=== PATIENT | female | born 1955 | race Caucasian/White ===

== ENCOUNTER → 2017-03-17 | Outpatient (CLI) | payer OTHER ==
[~2017-03-17] MED LIST: AMOX1TAB15 PO; ASPI325T PO; LEVO80CA; MULT-543 PO; MV C PO; NIAC500T22; P-EP-93 PO; POTA99TA24 PO; PRED20TA PO; QUET150T3 PO; VIBRYD PO; ZOLP-107 PO; [UNRECOGNIZED DRUG - OTHER] PO
[2017-03-17 17:35] LABS: HCT - HEMATOCRIT 43.2 % (36-46); HGB - HEMOGLOBIN 14.4 GM/DL (12-16); MEAN CORPUSCULAR HGB 29.4 UUG (26-34); MEAN CORPUSCULAR HGB CONC(MCHC 33.3 GM/DL (31-37); MEAN CORPUSCULAR VOLUME 88.3 UM3 (80-100); MEAN PLATELET VOLUME 10.3 UM3 (9.4-12.4); RED BLOOD COUNT 4.89 M/MM3 (4.00-5.20); WBC - WHITE BLOOD COUNT 11.7 T/MM3 (4.5-11.0)
[2017-03-17 17:44] LABS: ALBUMIN 4.8 G/DL (3.5-5.0); ALBUMIN/GLOBULIN RATIO 1.6 RATIO (1.1-2.2); ALKALINE PHOSPHATASE 96 U/L (38-126); ALT (SGPT) 54 U/L (9-52); ANION GAP 15 MEQ/L (5-15); AST (SGOT) 44 U/L (14-36); BUN/CREATININE RATIO 20 RATIO (6-26); CALCIUM 9.5 MG/DL (8.4-10.2); CHLORIDE 102 MEQ/L (98-107); CO2 - CARBON DIOXIDE 26 MEQ/L (22-30); CREATININE 0.6 MG/DL (0.7-1.2); GLOMERULAR FILTRATION RATE 102; GLUCOSE 126 MG/DL (65-110); SODIUM 143 MEQ/L (134-144); TOTAL PROTEIN 7.8 G/DL (6.3-8.2)
[2017-03-17 17:55] LABS: BAND NEUTROPHILS # 1.1 T/MM3; LYMPHOCYTES # (MANUAL) 0.5 T/MM3 (1-4.8); MONOCYTES # (MANUAL) 0.9 T/MM3 (0-0.8); MYELOCYTES # 0.1 T/MM3; NEUTROPHILS #(MANUAL)-ABSOLUTE 9.1 T/MM3 (1.8-7.7); TOTAL CELLS COUNTED 100 %
== END ==
LOC: LAB 17:17
PROVIDERS: ATTEND Family Medicine
DX: R11.2 Nausea with vomiting, unspecified (principal)
CPT/HCPCS: 36415; 80053; 85025; 87507

== ENCOUNTER 2018-06-16 17:42 | Inpatient (IN) ==
--- NOTE | 2018-06-16 18:00 | Emergency Department Report ---
Syncope HPI - General Chief Complaint: Dizziness Stated Complaint: low blood bp, feels like passing out Time Seen by Provider: 06/16/18 17:58 Source: patient - History of Present Illness HPI narrative: 63 YO F presents to ED with compliant of feeling like she might pass out intermittently. Says she has noticed this when she changes position and with exertion. States she started a high protein diet approx. 6 weeks ago and has lost approx. 15lbs. Had similar symptoms when she was on this diet before. Denies fever, chills, CP, SOA, nausea, vomiting, abdominal pain, dizziness, ataxia. Patient says she thought feeling like she might pass out was because her blood pressure was too low. Patient cut her prescribed metoprolol 25mg in half for 4 days and then went off of it after that. Says she took metoprolol for a "racing heart". complaint: almost passed out - Related Data Home Medications Medication Instructions Recorded Confirmed BuPROPion XL [Wellbutrin Xl] 150 mg PO DAILY 06/16/18 06/16/18 Calcium Carbonate 500 mg PO DAILY 06/16/18 06/16/18 Glucos/MSM/Colgii/C/Man/Herb21 1 cap PO BID 06/16/18 06/16/18 [Glucosamine-MSM Complex Cap] Lactobacillus Acidophilus 1 each PO DAILY 06/16/18 06/16/18 [Probiotic] Levomefolate Calcium 15 mg PO DAILY 06/16/18 06/16/18 [l-Methylfolate] Levomilnacipran HCl [Fetzima] 80 mg PO DAILY 06/16/18 06/16/18 Loratadine [Claritin] 10 mg PO DAILY 06/16/18 06/16/18 Multivit,Min/Folic Acid/Sph937 400 mcg PO DAILY 06/16/18 06/16/18 [Estroven Max Strength Caplet] Multivitamin [One Daily 1 each PO DAILY 06/16/18 06/16/18 Multivitamin] Niacin [Niacin ER] 500 mg PO BID 06/16/18 06/16/18 Potassium 99 mg PO DAILY 06/16/18 06/16/18 Quetiapine Fumarate [Quetiapine 300 mg PO HS 06/16/18 06/16/18 Fumarate ER] Previous Rx's Medication Instructions Recorded Ferrous Gluconate [Fergon] 324 mg PO WB #100 tab 06/20/18 Allergies Allergy/AdvReac Type Severity Reaction Status Date / Time Sulfa (Sulfonamide Allergy Unknown Verified 06/16/18 18:19 Antibiotics) Review of Systems All systems: reviewed and negative except as stated (Is) Constitutional: Denies: fever, chills, weight change, night sweats Cardiovascular: Denies: chest pain, palpitations, dyspnea on exertion Gastrointestinal: Denies: abdominal pain, nausea, vomiting, diarrhea PFSH Patient Stated Medical History Hearing Loss Yes Hypertension Yes Clinic Medical History (Last Updated 06/17/18 @ 14:45 by Ray Calvillo MD) Tachycardia (Chronic Medical) Crisis Manager: Dr. Reinier Anderson. Has had cardiac workup including echocardiogram and stress test. No history of atrial fibrillation. Mitral valve prolapse (Chronic Medical) Anxiety (Chronic Medical) Depression (Chronic Medical) Hyperlipidemia (Chronic Medical) Surgical History: Cholecystectomy. Tubal ligation. Hysterectomy Family History: Family History (Last Updated 06/17/18 @ 14:36 by Ray Calvillo MD) Father , at age 72 Diabetes Alcohol abuse Congestive heart failure (CHF) Heart disease Emphysema/COPD Mother , at age 62 Diabetes Heart disease Hypercholesteremia Heart attack Emphysema/COPD Brother Diabetes Hypercholesteremia Emphysema/COPD Brother Diabetes Hypercholesteremia Brother Cancer of colon Diabetes Hypercholesteremia Sister Morbid obesity Maternal Grandmother Cancer of breast Paternal Aunt Cancer of breast Paternal Aunt Ovarian cancer Noncontributory - Social History Household members: spouse Physical Exam - Limitations Limitations: no limitations - General General appearance: alert, in no apparent distress - Normal Exams: Head:: Normocephalic without trauma Eyes:: Pupils are PERRLA w/ EOMI, No scleral icterus ENMT:: No facial trauma, nasal exudates, pharyngeal erythema Neck:: Full range of motion Chest/Respirations:: Clear all strong, with good airflow, and symmetry bilaterally Abdomen:: Bowel sounds positive, soft, non-tender, non-distended Musculoskeletal:: good range of motion, all extremities Neurological:: Patient is alert, and oriented, motor/sensory/cerebellar, exams w /o gross deficits, to observation Psychiatric:: Patient exhibits, appropriate attention - ENT ENT exam: Present: TM's normal bilaterally (hemoglobin is is 0.5 softener heart refill) - Rectal Exam Rectal exam: Present: normal rectal tone, heme (+) stool, hemorrhoids - Skin Skin exam: Present: warm, dry Course - Consultations Consultation #1: I discussed patient HPI, past medical history, labs, EKG, vital signs exam findings with Dr. Torres. Dr. Torres will admit inpatient. I did discussed with Dr. Torres that I would consult Dr. Kendrick for possible colonoscopy related to GI bleed. Consultation #2: I discussed patient's HPI, past medical history, labs, vital signs, exam findings and conversation I had with Dr. Torres with Dr. Kendrick. He said he would be glad to consult on this patient. Vital Signs Temperature 98.7 F 06/16/18 17:45 Pulse Rate 108 H 06/16/18 17:45 Respiratory Rate 20 06/16/18 17:45 Blood Pressure 149/73 H 06/16/18 17:45 Pulse Oximetry 100 06/16/18 17:45 Temperature 96.8 F 06/20/18 11:59 Pulse Rate 116 H 06/20/18 11:59 Respiratory Rate 16 06/20/18 11:59 Blood Pressure 131/68 06/20/18 11:59 Pulse Oximetry 96 06/20/18 11:59 Syncope - MDM Narrative Medical decision making narrative: RBC 2.30 Hgb 6.5 ( I asked patient if she has had any blood or black tarry stools which she said she has some dark stool this week) Patient has heme positive stool. Chloride 112 TP 6.1 Globulin 2.3 Heme + stool Other labs unremarkable EKG shows SR Vital signs improving. Concern for GI bleed due to low Hgb and Heme+ stool. However also some concern Hgb low due dietary deficiencies. I discussed labs and exam findings with patient and need for admission to the hospital which she agreed with. Patient is admitted to the hospital service with consult to Dr. Kendrick. - Differential Diagnosis Likely: syncope due to orthostatic hypotension, vasovagal syncope, complete atrioventricular block, dehydration - Medical Records Attestation: I reviewed the patient's medical records. - Lab Data Attestation: I reviewed the patient's lab results. Result diagrams: 06/20/18 04:42 06/20/18 04:42 Lab Results 06/16/18 06/16/1806/16/18 Range/Units 18:27 18:27 18:36 WBC 4.6 (4.5-11.0) T/MM3 RBC 2.30 L (4.00-5.20) M/MM3 Hgb 6.5 L (12-16) GM/DL Hct 20.4 L (36-46) % MCV 88.7 (80-100) UM3 MCH 28.3 (26-34) UUG MCHC 31.9 (31-37) GM/DL RDW Std Deviation 43.7 (36.9-50.2) FL Plt Count 246 (130-400) T/MM3 MPV 10.8 (9.4-12.4) UM3 Neutrophils % (Manual) 65.0 (33-66) % Lymphocytes % (Manual) 28.0 (23-45) % Monocytes % (Manual) 5.0 (0-9.0) % Eosinophils % (Manual) 2.0 (0-4) % Neutrophils # (Manual) 3.0 (1.8-7.7) T/MM3 Lymphocytes # (Manual) 1.3 (1-4.8) T/MM3 Monocytes # (Manual) 0.2 (0-0.8) T/MM3 Eosinophils # (Manual) 0.1 (0-0.5) T/MM3 Hypochromasia 1+ Anisocytosis 1+ RBC Morph Comment Abnormal Turbidity < 20 (0-20) Sodium 145 (136-146) MEQ/L Potassium 3.7 (3.6-5) MEQ/L Chloride 112 H (98-107) MEQ/L Carbon Dioxide 23 (22-30) MEQ/L Anion Gap 10 (5-15) meq/L BUN 16.0 (7-17) MG/DL Creatinine 0.5 L (0.7-1.2) mg/dL Estimated Creat Clear 63 (>50) mL/min GFR Calculation 125 (>60) mL/min BUN/Creatinine Ratio 32 H (6-26) RATIO Glucose 90 (65-110) MG/DL Calculated Osmolality 280 (261-280) MOSM/KG Calcium 8.5 (8.4-10.2) MG/DL Total Bilirubin < 0.10 L (0.20-1.30) MG/DL Icterus Index < 2 (0-7) AST 21 (14-36) U/L ALT 17 (1-35) U/L Alkaline Phosphatase 55 (38-126) U/L Troponin I < 0.012 (0-0.12) ng/ml NT-Pro-B Natriuret Pep 116 (0-175) pg/mL Total Protein 6.1 L (6.3-8.2) g/dL Albumin 3.8 (3.5-5.0) g/dL Globulin 2.3 L (2.4-3.6) G/DL Albumin/Globulin Ratio 1.7 (1.1-2.2) RATIO Specimen Hemolysis < 15 (0-25) Ur Collection Type Urine, void-cc/notcc Urine Color Yellow (YELLOW) Urine Clarity Clear Urine pH 6.0 (5.0-8.0) Ur Specific [place] <=1.005 L (1.015-1.025) Urine Protein Negative (NEGATIVE) Urine Glucose (UA) Negative (NEGATIVE) Urine Ketones 1+ A (NEGATIVE) Urine Occult Blood Negative (NEGATIVE) Urine Nitrate Negative (NEGATIVE) Urine Bilirubin Negative (NEGATIVE) Urine Urobilinogen 0.2 (NORMAL) EU/DL Ur Leukocyte Esterase Negative (NEGATIVE) Urinalysis Comment Microscopic not ind. Disposition Clinical Impression: GI bleed Qualifiers: GI bleed type/associated pathology: unspecified gastrointestinal hemorrhage type Qualified Code(s): K92.2 - Gastrointestinal hemorrhage, unspecified [place]: [place] [facility] [place] Condition: Stable - Seen By: midlevel
[2018-06-16] MEDS: SALINE FLUSH 10ml SYRINGE IVF PRN (18:30)
[2018-06-16] MEDS ORDERED: NS 1,000 ML IV SCH (20:00)
--- NOTE | 2018-06-16 20:30 | History & Physical Report ---
History of Present Illness Date: 06/16/18 Chief complaint: lightheaded, concerned about bp HPI: Patient is a 63 y/o with h/o HTN, tachycardia, MDD/Anxiety who presents to ER w / concerns re: being intermittently lightheaded and feeling as if she may pass out going for about a week. Patient initially felt it was her BP being low, so she cut her metoprolol dose in half and then stopped completely this week. She states the lightheadedness and fatigue is more pronounced w/ exertion. She states she has been on a high protein diet for about 6 weeks and did lose approx. 15 lbs, and states she was on it in the past and had similar type symptoms at that time. Patient denies SOA, dyspnea, CP, dysphagia, BRBPR, n/v/d and f/c/s. She has fatigue and generalized weakness and does report some loose dark stools recently In ER patient noted to have Hgb of 6.5, and hemoccult + stool that was described by ED provider as "melanotic". No known h/o GI Bleed but does have h /o colonic polyps, last colonoscopy about 5 years ago. ER provider spoke w/ Dr. Calvillo and he will see her tomorrow. Patient admitted to the Hospitalist service for further evaluation and management. Review of Systems All systems PM: 10-point ROS was reviewed, no additional remarkable complaints except Past Medical History Medical History Updates: H/o depression, anxiety, unknown tachycardia and has had cardiology w/u in past w/ no definitive dx, thought to be sinus tach - no h/ o Afib; Has h/o MVP; Has h/o HTN Surgical History: Cholecystectomy. Tubal ligation. Hysterectomy Family History: Father and brother w/ colon "issues" Family History: As Above - Social History Smoking status: Never smoker Medications Home Medications Medication Instructions Recorded Confirmed Type BuPROPion XL [Wellbutrin Xl] 150 mg PO DAILY 06/16/18 06/16/18 History Calcium Carbonate [Calcium] 500 mg PO DAILY 06/16/18 06/16/18 History Glucos/MSM/Colgii/C/Man/Herb21 1 cap PO BID 06/16/18 06/16/18 History [Glucosamine-MSM Complex Cap] Lactobacillus Acidophilus 1 each PO DAILY 06/16/18 06/16/18 History [Probiotic] Levomefolate Calcium 15 mg PO DAILY 06/16/18 06/16/18 History [l-Methylfolate] Levomilnacipran HCl [Fetzima] 80 mg PO DAILY 06/16/18 06/16/18 History Loratadine [Claritin] 10 mg PO DAILY 06/16/18 06/16/18 History Multivit,Min/Folic Acid/Xjl512 400 mcg PO DAILY 06/16/18 06/16/18 History [Estroven Max Strength Caplet] Multivitamin [One Daily 1 each PO DAILY 06/16/18 06/16/18 History Multivitamin] Niacin [Niacin ER] 500 mg PO BID 06/16/18 06/16/18 History Potassium 99 mg PO DAILY 06/16/18 06/16/18 History Quetiapine Fumarate [Quetiapine 300 mg PO HS 06/16/18 06/16/18 History Fumarate ER] Allergies Allergy/AdvReac Type Severity Reaction Status Date / Time Sulfa (Sulfonamide Allergy Unknown Verified 06/16/18 18:19 Antibiotics) Exam Vital Signs: Temperature 98.7 F 06/16/18 17:45 Pulse Rate 99 06/16/18 20:21 Respiratory Rate 18 06/16/18 20:21 Blood Pressure 121/73 06/16/18 20:21 Pulse Oximetry 97 06/16/18 20:21 Telemetry Rhythm: Sinus Rhythm Height/Weight/BMI: Height 1.65 m Weight 82.9 kg - Constitutional Present: no acute distress, well nourished - Routine HEENT Exam Head: Present: normocephalic, atraumatic Eye: Present: EOMI, PERRL. Absent: conjunctival icterus, scleral injection ENT: Present: mucous membranes moist, nares patent - Routine Neck Exam Present: supple, full ROM. Absent: JVD, lymphadenopathy - Routine Respiratory Exam Present: CTA bilaterally. Absent: accessory muscle use, dyspnea, respiratory distress - Routine Cardiovascular Exam Present: RRR, S1, S2. Absent: murmur - Routine Abdominal Exam Present: soft, normoactive bowel sounds, non distended, non tender - Routine Extremities Exam Absent: cyanosis, clubbing, edema - Routine Skin Exam Present: intact, dry - Routine Neurological Exam Present: alert, oriented X3, CN II-XII intact. Absent: sensory deficit, motor deficit - Routine Psychiatric Exam Present: normal affect, normal thought process, cooperative, good insight, good judgment Results - Labs CBC & Chem 7: 06/16/18 18:27 06/16/18 18:27 Assessment and Plan Assessment and Plan: Assessment: 1) Acute Anemia - likely blood loss however possible dietary component as well 2) Acute GI bleed likely - hemoccult positive stool in ED tonight 3) Acute Near-syncopal episodes r/t #s 1 & 2 4) HTN 5) Mild tachycardia - sinus tachycardia - patient refers to h/o "accelearated heart rate in past" 6) Anxiety/Depression Plan: Admit to Hospitalist 1 unit pRBCs Clear liquid diet Dr. Calvillo consult IVFs Protonix Home meds as indicated Orthostatic BPs BP monitoring Telemetry Labs in AM including CBC, Renal Panel and mg level SCDs Fall precautions If elevated HR and Bp , may need to restart low-dose metoprolol which patient states she would be in agreement with however will hold off for now and monitor H/H I discussed the plan of care with the patient and the patient's and they verbalized understanding and agreement. DVT Prophylaxis: SCD's GI Prophylaxis: Protonix Resuscitation Status: Full Code - Physician Narrative Narrative: Date: 06/16/18 Time: 2022 Hospital Course Summary Disclaimer: The visit summary below is not to be considered part of the above Progress Note.
[2018-06-16] MEDS ORDERED: NS FLUSH BAG 500ml IV PRN (20:43)
[2018-06-16 20:52] VITALS: BMI 30.6
[2018-06-16] MEDS: NS 1,000 ML IV SCH (21:18)
[2018-06-16] MEDS ORDERED: PANTOPRAZOLE 40 MG INJECTION IVP ONE (21:54)
[2018-06-17] MEDS: NS 1,000 ML IV SCH ×3 (04:22→16:19)
[2018-06-17] MEDS: ACETAMINOPHEN 325 MG TABLET PO PRN ×2 (04:28→11:02)
[2018-06-17] MEDS: BuPROPion XL 150mg (24HR) TABLET PO SCH (08:40)
[2018-06-17] MEDS: CALCIUM CARBONATE 500 MG TABLET PO SCH (08:40)
[2018-06-17] MEDS: LEVOMILNACIPRAN PO SCH (08:41)
[2018-06-17] MEDS: MULTI-VITAMIN PLAIN TABLET PO SCH (08:45)
--- NOTE | 2018-06-17 09:10 | Progress Note ---
- Date 06/17/18 Subjective: Patient was admitted yesterday evening; documentation, labs and imaging reviewed. Presented with weakness, fatigue and found to have Hb 6.5 and melanotic stools. Transfused 1 unit PRBC overnight with recheck Hb 7.5 after. Feeling better today; tells me her last colonoscopy was 5 years ago with polyps removed, planned f/u scope at the end of June. Dr. Carreno consulted, on clears currently pending further plans. No further loose or dark stools overnight. Denies fevers, chills, dyspnea, nausea or vomiting. No history of previous GIB. Objective Vital signs: Temperature 97.7 F 06/17/18 08:00 Pulse Rate 85 06/17/18 08:00 Respiratory Rate 16 06/17/18 08:00 Blood Pressure 124/63 06/17/18 08:00 Pulse Oximetry 99 06/17/18 08:00 Rhythm: Normal Sinus Rhythm Height/Weight/BMI: Height 1.65 m Weight 85 kg Body Mass Index 30.6 - Constitutional Present: no acute distress, well nourished, well developed - Routine HEENT Exam Head: Present: normocephalic, atraumatic Eye: Present: EOMI, PERRL. Absent: conjunctival icterus ENT: Present: mucous membranes moist, oropharynx clear - Routine Respiratory Exam Present: CTA bilaterally. Absent: rales, wheezes - Routine Cardiovascular Exam Present: RRR, no murmur - Routine Abdominal Exam Present: soft, non distended - Routine Extremities Exam Present: no edema, pulses intact, normal capillary refill - Routine Skin Exam Present: dry, warm. Absent: rash - Routine Neurological Exam Present: alert, oriented X3, normal speech - Routine Psychiatric Exam Present: normal affect, normal thought process Results - Labs CBC & Chem 7: 06/17/18 02:45 06/17/18 02:45 Assessment and Plan Assessment and Plan: Assessment Acute Anemia - presumably acute on chronic blood loss but dietary component possible, has been on restricted diet Acute versus chronic GIB; hemoccult positive stool, last c-scope 5 years ago and on previous EGD --> Hb 6.5-->7.5 after 1 unit PRBC overnight 06/16 Acute near-syncopal episodes secondary to anemia; symptoms improved after PRBC and IVF Chronic HTN, BP low recently with weight loss (intentional) and she has been holding meds outpatient Mild tachycardia - sinus tachycardia per history - patient refers to h/o "accelearated heart rate in past" Anxiety/Depression--> stable symptoms currently Plan Continue clear liquid diet this morning Dr. Calvillo is consulted; will await his evaluation and plan prior to advancing diet Recheck Hb this afternoon for surveillance Will resume home meds as tolerated Continue telemetry monitoring today Surveillance labs in AM including renal panel, CBC SCDs for DVT prophylaxis Hold home metoprolol for now and monitor BP unless significant tachycardia Discussed with patient and . Will await plans/timing of endoscopy per surgery. DVT Prophylaxis: SCD's GI Prophylaxis: Protonix Resuscitation Status: Full Code - Physician Narrative Narrative: Date: 06/17/18 Time: 09 Hospital Course Summary Disclaimer: The visit summary below is not to be considered part of the above Progress Note. Hospital Course: Admitted overnight on 06/16 with near-syncopal symptoms and found to have Hb 6.5 and FOBT positive. Received 1 unit PRBC with Hb improved to 7.5. Plan 06/17/18 Continue clear liquid diet this morning Dr. Calvillo is consulted; will await his evaluation and plan prior to advancing diet Recheck Hb this afternoon for surveillance Will resume home meds as tolerated Continue telemetry monitoring today Surveillance labs in AM including renal panel, CBC SCDs for DVT prophylaxis Hold home metoprolol for now and monitor BP unless significant tachycardia
--- NOTE | 2018-06-17 14:24 | General Surgery Consult Note ---
Consult date: 06/17/18 Attending Physician: Sandy Peck MD Reason for consult: other (GI bleed) [facility] Medical History (Last Updated 06/17/18 @ 14:45 by Ray Calvillo MD) Tachycardia (Chronic) Title Search Manager: Dr. Reinier Anderson. Has had cardiac workup including echocardiogram and stress test. No history of atrial fibrillation. Mitral valve prolapse (Chronic) Anxiety (Chronic) Depression (Chronic) Hyperlipidemia (Chronic) Surgical History: * Right eye surgery for detached retina - 09/2015. * Colonoscopy - 06/28/[address] Richard Carl. Colonoscopy was normal and repeat was recommended in 5 years. * Bilateral tympanostomy tubes - 03/[address] Redding. * Right tympanic membrane perforation repair - 02/17/[address] Redding. * Colonoscopy - 02/27/[address] Fernandez. Colonoscopy was normal. * Colonoscopy - approximately [address] Fernandez. Reportedly an adenomatous colon polyp was removed. * Total abdominal hysterectomy with bilateral salpingo -oophorectomy via a Pfannenstiel incision - 01/[address] Boni Marrero. * Right cataract surgery with intraocular lens placement - 1997. * Eye surgery for revision of 2 eye muscles - 1995. * Laparoscopic cholecystectomy - 1994. * Tubal ligation - 1984. * Right eye surgery for extraction of traumatic cataract - 03/1965 Family History: Family History (Last Updated 06/17/18 @ 14:36 by Ray Calvillo MD) Father , at age 72 Diabetes Alcohol abuse Congestive heart failure (CHF) Heart disease Emphysema/COPD Mother , at age 62 Diabetes Heart disease Hypercholesteremia Heart attack Emphysema/COPD Brother Diabetes Hypercholesteremia Emphysema/COPD Brother Diabetes Hypercholesteremia Brother Cancer of colon Diabetes Hypercholesteremia Sister Morbid obesity Maternal Grandmother Cancer of breast Paternal Aunt Cancer of breast Paternal Aunt Ovarian cancer - Social History Smoking status: Never smoker Household members: spouse Medications Home Medications Medication Instructions Recorded Confirmed Type BuPROPion XL [Wellbutrin Xl] 150 mg PO DAILY 06/16/18 06/16/18 History Calcium Carbonate [Calcium] 500 mg PO DAILY 06/16/18 06/16/18 History Glucos/MSM/Colgii/C/Man/Herb21 1 cap PO BID 06/16/18 06/16/18 History [Glucosamine-MSM Complex Cap] Lactobacillus Acidophilus 1 each PO DAILY 06/16/18 06/16/18 History [Probiotic] Levomefolate Calcium 15 mg PO DAILY 06/16/18 06/16/18 History [l-Methylfolate] Levomilnacipran HCl [Fetzima] 80 mg PO DAILY 06/16/18 06/16/18 History Loratadine [Claritin] 10 mg PO DAILY 06/16/18 06/16/18 History Multivit,Min/Folic Acid/The285 400 mcg PO DAILY 06/16/18 06/16/18 History [Estroven Max Strength Caplet] Multivitamin [One Daily 1 each PO DAILY 06/16/18 06/16/18 History Multivitamin] Niacin [Niacin ER] 500 mg PO BID 06/16/18 06/16/18 History Potassium 99 mg PO DAILY 06/16/18 06/16/18 History Quetiapine Fumarate [Quetiapine 300 mg PO HS 06/16/18 06/16/18 History Fumarate ER] Allergies Allergy/AdvReac Type Severity Reaction Status Date / Time Sulfa (Sulfonamide Allergy Unknown Verified 06/16/18 18:19 Antibiotics) Review of Systems 10-point ROS: negative except for HPI and the following: - General General: Present: night sweats (chronic) - Eyes/Ears/Nose/Throat Ear Nose Throat: Present: hearing problems - Cardiovascular Cardiovascular: Present: irregular heart beat - Hematologic/Lymphatic Hematologic/Lymphatic: Present: use of blood thinners (ASA 325mg) - Vital Signs Vital Signs 06/17/18 08:00 Temperature 97.7 F Pulse Rate 88 Respiratory Rate 16 Blood Pressure 124/63 Pulse Oximetry 99 Oxygen Delivery Method Room Air - Laboratory Result Diagrams: 06/17/18 02:45 06/17/18 02:45
--- NOTE | 2018-06-17 15:15 | Consultation ---
DATE OF CONSULTATION 06/17/2018 REASON FOR CONSULTATION GI bleed. CONSULTING PHYSICIAN Ray Calvillo MD REQUESTING PHYSICIAN Dr. Mahesh Torres IMPRESSION 1. GI bleed of uncertain etiology with Hemoccult-positive stools. 2. Anemia - potentially from chronic blood loss. 3. Near-syncopal episodes. 4. Hypertension. 5. Personal history of adenomatous colon polyps. PLAN 1. The patient has been transfused. Continue to follow hemoglobin. 2. I do think that she could be continued on a clear liquid diet until the time of endoscopy. 3. I discussed the situation with the patient and her and I do think that she should have upper and lower endoscopy to investigate for the potential sources of her Hemoccult-positive stools. This can be performed on Tuesday assuming she is stable. HISTORY OF PRESENT ILLNESS The patient is a 63-year-old female patient of Dr. Carrol Langford who has been feeling lightheaded for the past week. She feels like her lightheadedness has progressively gotten worse. She cut her dose of metoprolol to a half dose for three days and stopped the metoprolol two days ago. She was still having problems and eventually her convinced her to come to the emergency department. She never passed out but she would have to go sit down when she was feeling ill. She denies any abdominal pain but she will have occasional heartburn. She rarely uses p.r.n. antacids. She has a history of constipation and two to three nights ago had loose stools that were reddish in color. She thought this had been from some packets of a red drink that were related to the diet plan that she was using. She has had normal variance in the caliber of her stools. She has not seen any blood in her stools. There is a possible family history of colon cancer in her brother. She does have a personal history of adenomatous colon polyps in approximately 2006 and has had multiple colonoscopies since then. She is just about at her five-year interval for a repeat colonoscopy. Her hemoglobin in the emergency department was 6.5 and she did have Hemoccult-positive stools. She has received 1 unit of blood so far and her repeat hemoglobin today is 7.5. Her MCV is normal. PAST MEDICAL HISTORY, PAST SURGICAL HISTORY, MEDICATIONS, ALLERGIES, SOCIAL HISTORY, FAMILY HISTORY, REVIEW OF SYSTEMS, VITAL SIGNS, LABORATORY DATA See electronic consultation note. PHYSICAL EXAMINATION GENERAL: The patient is awake and alert, in no acute distress. HEENT: Sclerae clear. Extraocular muscles intact. NECK: Supple with a midline trachea. No lymphadenopathy or thyromegaly are noted. HEART: Regular rate and rhythm. LUNGS: Clear to auscultation bilaterally. ABDOMEN: Soft, nontender, nondistended. No masses are noted. EXTREMITIES: No clubbing, cyanosis or edema. NEUROLOGIC: Cranial nerves II-XII are grossly intact. PSYCHIATRIC: Normal mood and affect. PATIENT EDUCATION I did discuss the recommendation of an EGD and colonoscopy with the patient and her . The risk discussion included but was not limited to bleeding, perforation, missed lesions, aspiration, and complications of anesthesia. The patient had opportunity to ask questions and she did wish to proceed with endoscopies this hospital stay. JAMELD
[2018-06-18] MEDS: NS 1,000 ML IV SCH (05:49)
[2018-06-18] MEDS ORDERED: 1/2 NS with KCL 20mEq 1,000 ML IV SCH (07:45)
[2018-06-18] MEDS: LEVOMILNACIPRAN PO SCH (08:33)
[2018-06-18] MEDS: CALCIUM CARBONATE 500 MG TABLET PO SCH (08:33)
[2018-06-18] MEDS: MULTI-VITAMIN PLAIN TABLET PO SCH (08:33)
[2018-06-18] MEDS: BuPROPion XL 150mg (24HR) TABLET PO SCH (08:33)
--- NOTE | 2018-06-18 10:51 | Progress Note ---
- Date 06/18/18 Subjective: Feeling a little better today. Recheck Hb yesterday afternoon higher than expected at 8.5 (? lab error); this morning 7.3, overall appears stable. No bloody or melanotic stools since arrival. No abdominal pain, fevers, chills, dyspnea. Slept well overnight, headache resolved with some caffeine. Discussed bowel prep this evening. Objective Vital signs: Temperature 97.4 F 06/18/18 08:00 Pulse Rate 84 06/18/18 08:00 Respiratory Rate 18 06/18/18 08:00 Blood Pressure 118/64 06/18/18 08:00 Pulse Oximetry 97 06/18/18 08:00 Rhythm: Normal Sinus Rhythm Height/Weight/BMI: Height 1.65 m Weight 84.5 kg Body Mass Index 30.6 - Constitutional Present: no acute distress, well nourished, well developed, cooperative - Routine HEENT Exam Head: Present: normocephalic, atraumatic Eye: Present: EOMI, PERRL. Absent: conjunctival icterus ENT: Present: mucous membranes moist, oropharynx clear - Routine Respiratory Exam Present: CTA bilaterally. Absent: rales, wheezes - Routine Cardiovascular Exam Present: RRR. Absent: no murmur - Routine Abdominal Exam Present: soft, non distended, non tender - Routine Extremities Exam Present: no edema, normal capillary refill - Routine Skin Exam Present: dry, warm. Absent: rash - Routine Neurological Exam Present: alert, oriented X3, normal speech - Routine Psychiatric Exam Present: normal affect, normal thought process Results - Labs CBC & Chem 7: 06/18/18 04:34 06/18/18 04:34 Assessment and Plan Assessment and Plan: Assessment Acute Anemia - presumably acute on chronic blood loss but dietary component possible, has been on restricted diet Acute versus chronic GIB; hemoccult positive stool, last c-scope 5 years ago and on previous EGD --> Hb 6.5-->7.5 after 1 unit PRBC overnight 06/16--> stable at 7.3 today Acute near-syncopal episodes secondary to anemia; symptoms improved after PRBC and IVF Chronic HTN, BP low recently with weight loss (intentional) and she has been holding meds outpatient Mild tachycardia - sinus tachycardia per history - patient refers to h/o "accelearated heart rate in past" Anxiety/Depression--> stable symptoms currently Hypokalemia; K 3.0 today Plan Continue clear liquid diet today; upper/lower endoscopy planned for tomorrow per surgery Change IVF to 1/2NS + 20 KCl this AM at 100 cc/hour, will stop for bowel prep so she does not have be hooked to IV all night; no volume depletion now Recheck Hb this afternoon for surveillance Will continue home meds as tolerated KCL po x 1 today 40 meq Continue telemetry monitoring today Surveillance labs in AM including renal panel, CBC SCDs for DVT prophylaxis Continue to hold home metoprolol for now and monitor BP unless significant tachycardia DVT Prophylaxis: SCD's GI Prophylaxis: Protonix Resuscitation Status: Full Code - Physician Narrative Narrative: Date: 06/17/18 Time: 09 Hospital Course Summary Disclaimer: The visit summary below is not to be considered part of the above Progress Note. Hospital Course: Admitted overnight on 06/16 with near-syncopal symptoms and found to have Hb 6.5 and FOBT positive. Received 1 unit PRBC with Hb improved to 7.5. Plan 06/17/18 Continue clear liquid diet this morning Dr. Calvillo is consulted; will await his evaluation and plan prior to advancing diet Recheck Hb this afternoon for surveillance Will resume home meds as tolerated Continue telemetry monitoring today Surveillance labs in AM including renal panel, CBC SCDs for DVT prophylaxis Hold home metoprolol for now and monitor BP unless significant tachycardia Plan 06/18/18 Continue clear liquid diet today; upper/lower endoscopy planned for tomorrow per surgery Change IVF to 1/2NS + 20 KCl this AM at 100 cc/hour, will stop for bowel prep so she does not have be hooked to IV all night; no volume depletion now Recheck Hb this afternoon for surveillance Will continue home meds as tolerated KCL po x 1 today 40 meq Continue telemetry monitoring today Surveillance labs in AM including renal panel, CBC SCDs for DVT prophylaxis Continue to hold home metoprolol for now and monitor BP unless significant tachycardia
[2018-06-18] MEDS ORDERED: POTASSIUM CHLORIDE 20 MEQ/15 ML ORAL LIQUID PO ONE (11:43)
[2018-06-18] MEDS ORDERED: Bisacodyl EC TAB 5 MG TABLET PO ONE (13:30)
[2018-06-18] MEDS ORDERED: POLYETHYL. GLYCOL 3350 BOTTLE 238 GM PO ONE (15:30)
[2018-06-18] MEDS: LR 1,000 ML IV SCH (23:56)
[2018-06-18] MEDS: SALINE FLUSH 10ml SYRINGE IVF PRN (23:56)
--- NOTE | 2018-06-19 09:01 | Progress Note ---
- Date 06/19/18 Subjective: Katrina is seen this morning resting in bed. She reports that she is not "cleaned out". She had a enema at 8 am however has had no results. She denies having any abdominal pain or nausea currently. She reports her stool this morning dark red in color. Denies feeling short of breath or lightheaded. Remains NPO this morning. Hgb 8.4. Objective Vital signs: Temperature 97.4 F 06/19/18 07:17 Pulse Rate 85 06/19/18 07:46 Respiratory Rate 16 06/19/18 07:17 Blood Pressure 115/63 06/19/18 07:17 Pulse Oximetry 97 06/19/18 07:17 Rhythm: Normal Sinus Rhythm Height/Weight/BMI: Height 1.65 m Weight 85.8 kg Body Mass Index 30.6 - Constitutional Present: no acute distress, well nourished, well developed - Routine HEENT Exam Eye: Present: EOMI ENT: Present: mucous membranes moist, dentition normal - Routine Respiratory Exam Present: CTA bilaterally. Absent: wheezes - Routine Cardiovascular Exam Present: RRR, S1, S2. Absent: murmur - Routine Abdominal Exam Present: soft, non distended. Absent: normoactive bowel sounds (hypoactive BS) , tenderness - Routine Extremities Exam Present: no edema, pulses intact - Routine Skin Exam Present: dry, warm - Routine Neurological Exam Present: alert, oriented X3, CN II-XII intact - Routine Lymphatic Exam Lymphatic: Absent: adenopathy - Routine Psychiatric Exam Present: normal affect Results - Labs CBC & Chem 7: 06/19/18 04:25 06/19/18 04:25 Assessment and Plan (1) GI bleed Current visit: Yes Status: Acute Assessment and Plan: Assessment Acute Anemia - presumably acute on chronic blood loss but dietary component possible, has been on restricted diet Acute versus chronic GIB; hemoccult positive stool, last c-scope 5 years ago and on previous EGD --> Hb 6.5-->7.5 after 1 unit PRBC overnight 06/16--> stable at 7.3 today Acute near-syncopal episodes secondary to anemia; symptoms improved after PRBC and IVF Chronic HTN, BP low recently with weight loss (intentional) and she has been holding meds outpatient Mild tachycardia - sinus tachycardia per history - patient refers to h/o "accelearated heart rate in past" Anxiety/Depression--> stable symptoms currently Hypokalemia; K 3.0 today Plan Remains nothing by mouth for planned upper and lower endoscopy today with Dr Calvillo Patient will receive an additional fleets enema this morning. Encourage nursing staff to contact Dr. Calvillo given questionable prep/cleanout Continue on IV fluids for hydration Hemoglobin today is stable at 8.4, however, patient does continue to report dark red in her stools SCDs for DVT prophylaxis DVT Prophylaxis: SCD's GI Prophylaxis: Protonix Resuscitation Status: Full Code - Physician Narrative Physician: Char Huitron MD Narrative: Date: 06/19/18 Time: 1610 I have independently evaluated and examined this patient. I reviewed the chart, the patient's history, and the [employer]/PA's documented findings as above. We discussed and formulated the assessment and plan as above with additions as below: Katrina was seen shortly after returning from EGD/colonoscopy. She denied abdominal pain or dyspnea and was unsure findings although her indicated that a polyp/mass was identified at colonoscopy and biopsies were obtained. Is not aware of any abnormalities at EGD although I subsequently spoke with Dr. Calvillo who reported minimal gastritis not felt to be source of the blood loss. Polyp/mass was ulcerated and located in the hepatic flexure. Could not be removed endoscopically. NAD, alert, respirations nonlabored Abdomen soft, nontender, bowel sounds present Hemoglobin 8.4-stable from yesterday; electrolytes/renal function unremarkable. Telemetry reviewed by myself-sinus rhythm/'s low-grade sinus tachycardia. Advance diet; await pathology-will require surgical resection of right colon after pathology available and known to be benign versus malignant. May be able to discharge tomorrow if clinically stable. Hospital Course Summary Disclaimer: The visit summary below is not to be considered part of the above Progress Note. Hospital Course: 06/16/18 Admitted overnight on 06/16 with near-syncopal symptoms and found to have Hb 6.5 and FOBT positive. Received 1 unit PRBC with Hb improved to 7.5. 06/17/18 Continue clear liquid diet this morning Dr. Calvillo is consulted; will await his evaluation and plan prior to advancing diet Recheck Hb this afternoon for surveillance Will resume home meds as tolerated Continue telemetry monitoring today Surveillance labs in AM including renal panel, CBC SCDs for DVT prophylaxis Hold home metoprolol for now and monitor BP unless significant tachycardia 06/18/18 Continue clear liquid diet today; upper/lower endoscopy planned for tomorrow per surgery Change IVF to 1/2NS + 20 KCl this AM at 100 cc/hour, will stop for bowel prep so she does not have be hooked to IV all night; no volume depletion now Recheck Hb this afternoon for surveillance Will continue home meds as tolerated KCL po x 1 today 40 meq Continue telemetry monitoring today Surveillance labs in AM including renal panel, CBC SCDs for DVT prophylaxis Continue to hold home metoprolol for now and monitor BP unless significant tachycardia 06/19/18 Remains nothing by mouth for planned upper and lower endoscopy today with Dr Calvillo Patient will receive an additional fleets enema this morning. Endoscopic studies subsequently completed revealing minor gastritis on EGD and a large ulcerated polyp versus mass at the hepatic flexure-biopsies obtained. Continue on IV fluids for hydration Hemoglobin today is stable at 8.4, however, patient does continue to report dark red in her stools
[2018-06-19] MEDS: MULTI-VITAMIN PLAIN TABLET PO SCH (09:16)
[2018-06-19] MEDS: CALCIUM CARBONATE 500 MG TABLET PO SCH (09:16)
--- NOTE | 2018-06-19 09:24 | Progress Note ---
DATE OF VISIT 06/18/2018 REASON FOR VISIT Follow GI bleed. SUBJECTIVE Ktarina is doing well. She did have a bowel movement this afternoon which was black per the patient. Her hemoglobin this morning had decreased to 7.3 but was 7.7 on recheck today. She has started her bowel prep but has not had results yet. She is tolerating clear liquid diet well. OBJECTIVE VITAL SIGNS: Afebrile with stable vitals on room air. GENERAL: The patient is awake and alert, in no acute distress. ABDOMEN: Soft, nontender, nondistended. IMPRESSION 1. GI bleed. 2. Anemia - stable. PLAN 1. Continue clear liquid diet and complete bowel prep this evening. 2. Esophagogastroduodenoscopy and colonoscopy tomorrow. 3. N.p.o. at midnight. 4. Continue to follow hemoglobin. MTDD
[2018-06-19] MEDS: BuPROPion XL 150mg (24HR) TABLET PO SCH (09:54)
[2018-06-19] MEDS: LEVOMILNACIPRAN PO SCH (09:54)
[2018-06-19] MEDS ORDERED: PROPOFOL 500 MG/50 ML VIAL ONE ×2 (11:21→12:46)
[2018-06-19] MEDS ORDERED: LIDOCAINE VISCOUS 2% ORAL LIQUID 15ml ONE (11:21)
[2018-06-19] MEDS ORDERED: PROPOFOL 20 ML ONE ×2 (12:02→12:25)
[2018-06-19] MEDS: LR 1,000 ML IV SCH ×2 (12:32→15:17)
--- NOTE | 2018-06-19 13:13 | Anesthesia Preoperative Report ---
Anesthesia Preoperative Record - Date and Time Date: 06/19/18 Preoperative Diagnosis: Acute Anemia, possible GI bleed, near-syncope NPO Since Date: 06/18/18 NPO Since Time: 23:00 Allergies/Adverse Reactions: Allergies Allergy/AdvReac Type Severity Reaction Status Date / Time Sulfa (Sulfonamide Allergy Unknown Verified 06/16/18 18:19 Antibiotics) - Vital Signs Vital Signs: Temperature 97.7 F 06/19/18 10:40 Pulse Rate 98 06/19/18 10:40 Respiratory Rate 20 06/19/18 10:40 Blood Pressure 125/70 06/19/18 10:40 Pulse Oximetry 97 06/19/18 10:40 Height and Weight: Height 5 ft 5 in Weight 85.8 kg Body Mass Index 30.6 - Medications Inpatient Medications: Current Medications Bupropion HCl (Wellbutrin Xl) 150 mg PO DAILY [facility] Last Admin: 06/19/18 09:54 Dose: Not Given Calcium Carbonate (Calcium Carbonate) 500 mg PO DAILY [facility] Last Admin: 06/19/18 09:16 Dose: Not Given Lactated Ringer's (Lactated Ringers) 1,000 mls @ 75 mls/hr IV .[id number] [facility] Last Infusion: 06/19/18 13:10 Dose: Infused Levomilnacipran (Fetzima) 80 mg PO DAILY [facility] Last Admin: 06/19/18 09:54 Dose: Not Given Multivitamins (Theragran) 1 tab PO DAILY [facility] Last Admin: 06/19/18 09:16 Dose: Not Given Quetiapine Fumarate (Seroquel Xr) 300 mg PO HS [facility] Last Admin: 06/18/18 20:13 Dose: 300 mg Sodium Chloride (Iv Flush) 10 - 80 ml IVF PRN PRN PRN Reason: Flushing Last Admin: 06/18/18 23:56 Dose: 10 ml Sodium Chloride (Normal Saline) 500 ml IV PRN PRN Home Medications: Home Medications Medication Instructions Recorded Confirmed Type BuPROPion XL [Wellbutrin Xl] 150 mg PO DAILY 06/16/18 06/16/18 History Calcium Carbonate [Calcium] 500 mg PO DAILY 06/16/18 06/16/18 History Glucos/MSM/Colgii/C/Man/Herb21 1 cap PO BID 06/16/18 06/16/18 History [Glucosamine-MSM Complex Cap] Lactobacillus Acidophilus 1 each PO DAILY 06/16/18 06/16/18 History [Probiotic] Levomefolate Calcium 15 mg PO DAILY 06/16/18 06/16/18 History [l-Methylfolate] Levomilnacipran HCl [Fetzima] 80 mg PO DAILY 06/16/18 06/16/18 History Loratadine [Claritin] 10 mg PO DAILY 06/16/18 06/16/18 History Multivit,Min/Folic Acid/[id number] 400 mcg PO DAILY 06/16/18 06/16/18 History [Estroven Max Strength Caplet] Multivitamin [One Daily 1 each PO DAILY 06/16/18 06/16/18 History Multivitamin] Niacin [Niacin ER] 500 mg PO BID 06/16/18 06/16/18 History Potassium 99 mg PO DAILY 06/16/18 06/16/18 History Quetiapine Fumarate [Quetiapine 300 mg PO HS 06/16/18 06/16/18 History Fumarate ER] Is Patient on Beta Madie?: Yes - Medical History Respiratory: DENIES: Sleep Apnea Cardiovascular: Reports: Arrhythmia (tachycardia), Hypertension, High Cholesterol, Other (Mitral valve prolapse) Other History: DENIES: Anesthesia Reactions - Surgical History GI Surgery/Treatments: Reports: Appendectomy, Cholecystectomy Reproductive Surgery/Treatment: Reports: Hysterectomy, Oophorectomy Anesthesia Reactions: None Hx Family Anesthesia Reaction: No History of Motion Sickness: No - Social History Smoking Status: Never smoker Hx Chewing Tobacco Use: No Second Hand Exposure: No - Pertinent Findings Laboratory: CBC and BMP 06/19/18 04:25 06/19/18 04:25 BMP 06/19/18 04:25 Sodium 146 Potassium 3.6 D Chloride 113 H Carbon Dioxide 22 BUN 8.0 Creatinine 0.6 L Glucose 114 H Calcium 8.7 D Liver Function 06/19/18 Range/Units 04:25 Albumin 4.0 (3.5-5.0) g/dL EKG: Sinus Rhythm - Physical Exam Respiratory Exam: Present: lungs clear, bilateral breath sounds equal Cardiovascular Exam: Present: regular rate and rhythm - Airway Assessment Mallampati Score: II TMD: 3 Fingerbreadths Neck Extension: good Overall Assessment: no airway concerns - ASA ASA Score: 3 - Plan Anesthesia: General TIVA - Discussion Discussion: Discussed risks/options/alternatives of anesthesia and questions answered. Patient consents. Nursing pain assessment noted. Present for Discussion: spouse Attestation Statement: Prior to the delivery of any anesthetic medication, I examined the patient, developed the plan, obtained the patient's consent and discussed the risk and benefits of the procedure with the patient/guardian. - Additional Information Seen by Anesthesia: Yes
--- NOTE | 2018-06-19 13:13 | Anesthesia Postoperative Note ---
- Date and Time Date: 06/19/18 Time: 13:13 - Status Patient Participated in Evaluation: Patient Participated in Person Vital Signs: Temperature 97.7 F 06/19/18 10:40 Pulse Rate 98 06/19/18 10:40 Respiratory Rate 20 06/19/18 10:40 Blood Pressure 125/70 06/19/18 10:40 Pulse Oximetry 97 06/19/18 10:40 Respiratory Function: Airway Patent Cardiovascular Function: Regular Pulse EKG: Sinus Rhythm Mental Status: Alert and Oriented Pain Intensity: 0 Hydration: Taking PO Fluids Nausea/Vomiting: None Complications During Recover: None Apparent - Follow-Up Instructions Instructions: Per Surgeon
--- NOTE | 2018-06-19 14:29 | General Surgery Procedure Note ---
Date of Procedure: 06/19/18 Surgeon: Rajinder Anesthesia: General TIVA ASA Score: 3 Postoperative Diagnosis: Hepatic flexure mass vs polyp not resectable by endoscopic techniques (likely source of blood loss), Minimal antral gastritis Procedure: Esophagogastroduodenoscopy with antral biopsies Colonoscopy with biopsies of hepatic flexure mass
[2018-06-19 20:32] VITALS: RESP 16
[2018-06-20] MEDS: LR 1,000 ML IV SCH ×2 (00:24→03:04)
[2018-06-20] MEDS ORDERED: ACETAMINOPHEN 325 MG TABLET PO PRN (08:34)
[2018-06-20] MEDS: BuPROPion XL 150mg (24HR) TABLET PO SCH (08:41)
[2018-06-20] MEDS: CALCIUM CARBONATE 500 MG TABLET PO SCH (08:42)
[2018-06-20] MEDS: MULTI-VITAMIN PLAIN TABLET PO SCH (08:42)
[2018-06-20] MEDS: LEVOMILNACIPRAN PO SCH (08:42)
[2018-06-20] MEDS ORDERED: FERROUS GLUCONATE 324 MG TABLET PO SCH (10:01)
[2018-06-20] MEDS: SALINE FLUSH 10ml SYRINGE IVF PRN (10:11)
[2018-06-20 12:00] VITALS: BP 131/68; PULSE 116; TEMP 96.8; O2SAT 96
--- NOTE | 2018-06-20 18:45 | Discharge Summary ---
Discharge Information Date of admission: 06/16/18 20:04 Anticipated date of discharge: 06/20/18 Attending Physician: Char Huitron MD Primary care physician: Carrol Langford MD Consults: Consulting Provider: Ray Calvillo Reason For Exam: GI bleed - Discharge Diagnosis (1) GI bleed Status: Acute Acute GI bleed Ulcerated right colon cancer Acute blood loss anemia Near syncope, due to anemia hx hypertension Anxiety/depression Hypokalemia - Procedures Procedures: EGD and colonoscopy on 06/19/18 demonstrating minimal antral gastritis and ulcerated hepatic flexure mass versus polyp-lesion was too large to be removed endoscopically.. - Laboratory Labs: On admission on 06/16/18 hemoglobin was 6.5 with MCV 88.7. Chemistries unremarkable. CEA on date of discharge 4.02 mcg/mL 06/20/18 04:42 06/20/18 04:42 - Microbiology Microbiology 06/19/18 11:43 Gastric Biopsy Helicobacter pylori Rapid Urease - Final - Pathology Endoscopic biopsies obtained 06/19: Gastric mucosa revealed minimal chronic mucosal inflammation-mild reactive epithelial changes but no metaplasia, dysplasia, or malignant neoplasia. No Helicobacter organisms identified. Colonic mucosa (hepatic flexure mass)-invasive moderately differentiated colonic adenocarcinoma area grade 2. History of Present Illness HPI: Patient is a 63 y/o with h/o HTN, tachycardia, MDD/Anxiety who presents to ER w / concerns re: being intermittently lightheaded and feeling as if she may pass out going for about a week. Patient initially felt it was her BP being low, so she cut her metoprolol dose in half and then stopped completely this week. She states the lightheadedness and fatigue is more pronounced w/ exertion. She states she has been on a high protein diet for about 6 weeks and did lose approx. 15 lbs, and states she was on it in the past and had similar type symptoms at that time. Patient denies SOA, dyspnea, CP, dysphagia, BRBPR, n/v/d and f/c/s. She has fatigue and generalized weakness and does report some loose dark stools recently In ER patient noted to have Hgb of 6.5, and hemoccult + stool that was described by ED provider as "melanotic". No known h/o GI Bleed but does have h /o colonic polyps, last colonoscopy about 5 years ago. ER provider spoke w/ Dr. Calvillo and he will see her tomorrow. Patient admitted to the Hospitalist service for further evaluation and management. Objective Vital signs: Temperature 96.8 F 06/20/18 11:59 Pulse Rate 116 H 06/20/18 11:59 Respiratory Rate 16 06/20/18 11:59 Blood Pressure 131/68 06/20/18 11:59 Pulse Oximetry 96 06/20/18 11:59 NAD, alert Conjunctiva clear, sclera anicteric Respirations nonlabored with good airflow, breath sounds clear Regular rhythm, S1-S2 Abdomen soft, nontender, bowel sounds present Extremities without edema Rhythm: Normal Sinus Rhythm Height/Weight/BMI: Height 1.65 m Weight 85.5 kg Body Mass Index 30.6 Hospital Course This is a general summary of the patient's hospital course. For more details refer to the complete medical record. Hospital course: 06/16/18 Admitted overnight on 06/16 with near-syncopal symptoms and found to have Hb 6.5 and FOBT positive. Received 1 unit PRBC with Hb improved to 7.5. 06/17/18 Continue clear liquid diet this morning Dr. Calvillo is consulted; will await his evaluation and plan prior to advancing diet Recheck Hb this afternoon for surveillance Will resume home meds as tolerated Continue telemetry monitoring today Surveillance labs in AM including renal panel, CBC SCDs for DVT prophylaxis Hold home metoprolol for now and monitor BP unless significant tachycardia 06/18/18 Continue clear liquid diet today; upper/lower endoscopy planned for tomorrow per surgery Change IVF to 1/2NS + 20 KCl this AM at 100 cc/hour, will stop for bowel prep so she does not have be hooked to IV all night; no volume depletion now Recheck Hb this afternoon for surveillance Will continue home meds as tolerated KCL po x 1 today 40 meq 06/19/18 Remains nothing by mouth for planned upper and lower endoscopy today with Dr Calvillo Patient will receive an additional fleets enema this morning. Endoscopic studies subsequently completed revealing minor gastritis on EGD and a large ulcerated polyp versus mass at the hepatic flexure-biopsies obtained. Continue on IV fluids for hydration Hemoglobin today is stable at 8.4. 06/20/18 Patient reported no difficulties overnight indicating no abdominal discomfort or stools following bowel prep. She expressed concern about chronic constipation. Dr. Calvillo subsequently discussed pathology results indicating moderately differentiated colon cancer with the patient. Hemoglobin 7.3 this morning the patient is completely asymptomatic-ambulating without difficulty and vital signs stable. Iron supplement initiated; patient is aware that if she does not tolerate oral iron IV iron could be entertained. Stable for discharge; will require follow-up in the near future for reassessment of hemoglobin to assure that additional outpatient transfusion is not needed. Dr. Calvillo plans to allow hemoglobin to improve prior to scheduling surgery and to allow oncology to evaluate patient preoperatively. Time spent with patient: discharge greater than 30 minutes Discharge Plan - Discharge Disposition Discharge Date: 06/20/18 Disposition: Discharged Home, Self-Care *Condition: Stable Reason For Visit (Visit label in EMR): Acute Anemia, possible GI bleed, near- syncope - Discharge Medications *Discharge Medications: New Ferrous Gluconate [Fergon] 324 mg PO WB #100 tab Continue Glucos/MSM/Colgii/C/Man/Herb21 [Glucosamine-MSM Complex Cap] 1 cap PO BID BuPROPion XL [Wellbutrin Xl] 150 mg PO DAILY Potassium 99 mg PO DAILY Levomefolate Calcium [l-Methylfolate] 15 mg PO DAILY Calcium Carbonate 500 mg PO DAILY Levomilnacipran HCl [Fetzima] 80 mg PO DAILY Multivitamin [One Daily Multivitamin] 1 each PO DAILY Niacin [Niacin ER] 500 mg PO BID Loratadine [Claritin] 10 mg PO DAILY Lactobacillus Acidophilus [Probiotic] 1 each PO DAILY Quetiapine Fumarate [Quetiapine Fumarate ER] 300 mg PO HS Multivit,Min/Folic Acid/Llm296 [Estroven Max Strength Caplet] 400 mcg PO DAILY - Discharge Packet/Instructions *Diet: Regular diet-increase fruit and vegetables to minimize constipation *Activity: As tolerated. *Pain Management/Treatment: Tylenol per package instructions if medication needed *Wound Care: Not applicable Additional Instructions: 1. Take an iron supplement daily-prescription for iron gluconate included but you can purchase iron supplements [id number]. Iron tends to be constipating and make stools dark. If causing extreme constipation try taking every other day. Taking with vitamin C will improve absorption. 2. Consider adding a fiber supplement daily (Metamucil, MiraLAX, Benefiber, or generics of any of the above) to minimize chronic constipation. Can add a senna based stimulant as needed. *Expected Signs/Symptoms: Mild generalized weakness, dark stools with iron supplement *Notify Physician if: Passing out, bloody stools, or black tarry diarrhea *During Business Hours Contact: Dr. Langford *After Business Hours Contact: Call [facility] at [phone] and ask that the on-call physician be paged *Pending Lab/Results: No Pending Lab - Referrals/Follow Up *Referrals/Follow Up: Ham Lin MD [Physician] - 06/28/18 1:00 pm (Patient should receive new patient paperwork in the mail. If not filled out beforehand will need to arrive 30 minutes early for appointment time.) Carrol Langford MD [Primary Care Provider] - 1 Week () Ray Calvillo MD [Physician] - (As instructed) - Patient Handouts Patient Handouts: Colorectal Cancer (GEN), Iron Rich Diet (DC), Iron Deficiency Anemia (DC), Blood Transfusion (GEN) - Dismissal Complete Discharge Instructions are:: Complete Physician Narrative - Narrative Attestation Narrative: Date: 06/20/18 Time: 1840
[2018-06-21] MEDS ORDERED: FERROUS GLUCONATE 324 MG TABLET PO SCH (08:00)
--- NOTE | 2018-06-21 08:42 | Operative Note ---
DATE OF OPERATION 06/19/2018 SURGEON Ray Calvillo MD PREOPERATIVE DIAGNOSIS GI bleeding with Hemoccult positive stools. POSTOPERATIVE DIAGNOSES 1. Hepatic flexure mass - unresectable by endoscopic techniques - pathology pending. 2. Mild antral gastritis. PROCEDURE 1. Esophagogastroduodenoscopy with antral biopsy for NIKKI testing and antral biopsies for histology. 2. Colonoscopy with biopsies (cold) of the hepatic flexure mass. ANESTHESIA TIVA ASA CLASS 3 INDICATIONS The patient is a 63-year-old female who had been admitted to the hospital for severe anemia. She had Hemoccult positive stools on testing in the emergency department. She has a personal history of adenomatous colon polyps and was almost due for repeat screening colonoscopy. An esophagogastroduodenoscopy and colonoscopy had been recommended to her after consultation. FINDINGS The colon showed a fairly substantial mass in the area of the hepatic flexure. This central area was ulcerated and it did look to be a potential source of blood loss. The stomach showed very minimal antral gastritis which did not look to be a source of bleeding. The colon mass was too large to safely remove , so biopsies were taken. DESCRIPTION OF PROCEDURE After informed consent was obtained, the patient was taken to the endoscopy suite and placed in the left lateral decubitus position. IV anesthesia was administered by the anesthesia team. A bite block was inserted followed by an Olympus video gastroscope. The gastroscope was advanced down to the third portion of the duodenum under direct vision. The scope was slowly withdrawn, examining the mucosa circumferentially. In the antrum, minimal irritation was noted so a biopsy was taken for NIKKI testing and additional biopsies were taken for histology. The scope was retroflexed to examine the cardiac and fundic portions of the stomach. The carbon dioxide insufflation was evacuated and the scope was withdrawn into the esophagus. The Z-line was sharp and the esophagus was normal to inspection during scope removal. The patient was repositioned for colonoscopy. A digital rectal exam was performed and was normal. An Olympus video colonoscope with an AmplifEYE device was inserted and was retroflexed to examine the distal rectum. The scope was advanced to the level of the cecum without difficulty. The cecum was identified by the appendiceal orifice and ileocecal valve. The bowel prep was fair with fairly significant liquid contents in the right colon that had to be irrigated and evacuated via the colonoscope. She had received a MiraLAX/ Dulcolax bowel prep the day prior and received two enemas to help complete her bowel prep this morning. The scope was slowly withdrawn examining the mucosa circumferentially. In the area of the hepatic flexure, there was an ulcerated mass noted. Biopsies were taken of the mass since it was too large to be safely removed with the colonoscope. The scope was withdrawn slowly and no other abnormalities were noted in the colon. Upon reaching the rectum, the carbon dioxide insufflation was evacuated and the scope was removed. RECOMMENDATIONS Await pathology results to help determine the next step for her hepatic flexure mass. She will need a colon resection even if the mass is shown to be simply a polyp. OTF
--- NOTE | 2018-06-21 17:57 | Progress Note ---
DATE OF VISIT 06/20/2018 The patient's colonoscopy results were discussed with her. I did explain her pathology findings and share with her the fact that she had cancer cells noted on the biopsy of her hepatic flexure mass. I did explain that surgical excision was going to be necessary but that we would need to get her set up to see an oncologist for preoperative metastatic workup. I did explain that a robotic approach to her surgery would likely be possible and that further details of surgery would be discussed in the clinic. I explained that I thought she should try to increase her blood count with some iron supplementation before having the procedure. She does not need to have any special dietary restrictions or activity restrictions. The patient did not have a strong preference for an oncologist so I said that I would check with Dr. Langford and see who she would like to refer the patient to. I will get her appointment scheduled before dismissal. I do think that she could be dismissed from the hospital today with the plan for ongoing workup in the clinic. 25 minutes of [id number] time was spent with the patient with greater than half of the time being used for counseling and coordination of care today. OTF
== END 2018-06-20 14:00 | disposition home or self-care (01) | DRG 375 ==
LOC: ED 17:42 → EDHOLD 20:04 → SUATTDRO 20:04 → EDHOLD 20:25 → SRG 20:27
PROVIDERS: ADMIT Internal Medicine; ATTEND Internal Medicine
PROC: END.EGD (2018-06-19 10:30)